=== PATIENT | male | born 1960 | race Caucasian/White ===

== ENCOUNTER 2017-03-21 07:33 | Day surgery (SDC) | payer BC ==
--- NOTE | 2017-03-21 14:50 | Operative Note ---
DATE OF SURGERY: 03/21/2017 OPERATION: ESOPHAGOGASTRODUODENOSCOPY with biopsy. INDICATION: Recent recurring coughing which is clinically resolved. The patient also had a prior history of a duodenal polyp. He returns at this time for reevaluation. ANESTHESIA: Intravenous sedation was administered by the department of anesthesiology and included Diprivan titrated to effect. PROCEDURE: Following informed consent from this alert individual, including a discussion of the risks and benefits of the procedure and an opportunity for the patient to ask questions, the patient was in the left lateral decubitus position. The Olympus [id number] video endoscope was inserted into the esophagus without resistance. The esophageal mucosa throughout had a normal appearance with normal folds and distensibility. The squamocolumnar junction was smooth and well defined and approximated the diaphragmatic hiatus. The stomach was entered and found to be unremarkable except for some mild streak-like erythema along the greater curvature of the gastric antrum. No ulcerations or erosions were noted. Biopsies from the stomach were obtained to assess for Helicobacter pylori and check histology. Retroflexion in the stomach was endoscopically unremarkable. The endoscope was advanced into the duodenum. The duodenal bulb was endoscopically unremarkable. The sweep and descending duodenum were then examined in a serial fashion. There were 2 diminutive 3 mm polyps noted; 1 in the descending portion of the duodenum and 1 at the duodenal sweep. These were each removed with application of biopsy forceps. No other changes were appreciated. The endoscope was then withdrawn. The patient tolerated the procedure well and was returned to the recovery area in stable condition. IMPRESSION: 1. Two 3 mm duodenal polyps noted at the sweep and descending portion of the duodenum as described above, removed with biopsy forceps. 2. Antral gastritis, biopsies taken. RECOMMENDATION: Further recommendations will be forthcoming pending results of pathology obtained today. Followup will be with primary care as well. As always, thank you for allowing me to participate in the care of your patient. CC: ROSA Garcia
[2017-03-21] MEDS ORDERED: PROPOFOL 10 MG/ML VIAL IV ONE (15:54)
[2017-03-21] MEDS ORDERED: LIDOCAINE 2% MDV (20MG/ML) 20ML VIAL IV ONE (15:54)
[2017-03-21] MEDS ORDERED: FENTANYL PF 100MCG/2ML VIAL IV ONE (15:54)
== END 2017-03-21 09:10 | disposition home or self-care (01) ==
LOC: HOP 07:33
PROVIDERS: ATTEND Internal Medicine Gastroenterology
DX: K29.70 Gastritis, unspecified, without bleeding (principal); D13.2 Benign neoplasm of duodenum
CPT/HCPCS: 43235; 00740; J3010